=== PATIENT | female | born 1975 | race Two or more races ===

== ENCOUNTER 2023-05-05 22:17 | Emergency (ER) | payer OTHER ==
[~2023-05-05] VITALS: Ht 162.6 cm; Wt 78.0 kg
[2023-05-05] MEDS ORDERED: OZEMPIC1 MG/0.71 SQ (22:34)
[2023-05-05] MEDS ORDERED: SONATA10 MG PO (22:35)
[2023-05-05] MEDS ORDERED: ZITHROMAX100 MG/51 PO (22:35)
[2023-05-06] MEDS ORDERED: ALBUTEROL SULFATE 3 ML/2.5 MG AMPUL.NEB IH SCH (00:45)
[2023-05-06] MEDS ORDERED: METHYLPREDNISOLONE SOD SUCC 125 MG VIAL IV STA (00:46)
[2023-05-06 01:44] LABS: CALCIUM 9.6 mg/dL (8.5-10.1); CREATININE SERUM 0.62 mg/dL (0.55-1.02); GFR 103.63; POTASSIUM 4.86 mEq/L (3.5-5.1)
[2023-05-06 01:49] LABS: ABG PH 7.441 (7.35-7.45); ABG PO2 90.9 mmHg (80-100); ABG pCO2 34.5 mmHg (35-45); BASE EXCESS -0.5 mmol/l; SaO2 97.3 %; allen test SATISFACTORY; o2 21 %; puncture site RADIAL LEFT
[2023-05-06 02:12] LABS: HEMATOCRIT 31.4 % (36.0-45.00); HEMOGLOBIN 9.9 g/dL (12.0-15.00); MEAN CELL VOLUME 69.3 fL (80.00-100.00); MEAN CORPUSCULAR HEMOGLOBIN 21.8 pg (27.00-32.0); MEAN CORPUSCULAR HGB CONC 31.5 g/dl (32.0-36.0); PLATELET COUNT 254 K/uL (150-450); RED BLOOD COUNT 4.54 M/uL (4.00-6.00); RED CELL DISTRIBUTION WIDTH 20.9 % (11.5-14.5)
[2023-05-06] MEDS ORDERED: ALBUTEROL2.5 MG/3 M IH (04:16)
[2023-05-06] MEDS ORDERED: BUDESONIDE0.5 MG/2 M IH (04:16)
[2023-05-06] MEDS ORDERED: ZYNCOF 20-400120 ML PO (04:16)
== END 2023-05-06 | disposition home or self-care (01) ==
LOC: ER 22:17
PROVIDERS: General Practice
DX: J40 Bronchitis, not specified as acute or chronic (principal); Z20.822 Contact with and (suspected) exposure to COVID-19; Z88.8 Allergy status to other drugs, medicaments and biological substances